=== PATIENT | female | born 1985 | race Two or more races ===

== ENCOUNTER 2023-06-13 08:50 | Emergency (ER) | payer BC, OTHER ==
[~2023-06-13] VITALS: Ht 157.5 cm; Wt 66.1 kg
[2023-06-13] MEDS ORDERED: CEPH500C PO (09:32)
[2023-06-13 09:39] VITALS: BP 159/97; PULSE 85; RESP 18; TEMP 98.3; O2SAT 97
[2023-06-13] MEDS ORDERED: FLUC150T38 PO (09:43)
== END 2023-06-13 09:42 | disposition home or self-care (01) ==
LOC: ER 08:50
DX: S90.561A Insect bite (nonvenomous), right ankle, initial encounter (principal); Z79.899 Other long term (current) drug therapy; W57.XXXA Bitten or stung by nonvenomous insect and other nonvenomous arthropods, initial encounter; Y93.89 Activity, other specified; Y92.89 Other specified places as the place of occurrence of the external cause; Y99.8 Other external cause status